=== PATIENT | female | born 1955 | race Caucasian/White ===

== ENCOUNTER 2017-04-16 17:49 | Emergency (ER) | payer OTHER ==
--- NOTE | ~2017-04-16 | CT71 ---
[facility] A Service [facility] RADIOLOGY TEXT RESULTS PATIENT: MONALISA SAMAYOA LOCATION: SED : 55 UNIT #: [id number] AGE: [address]: Cony Fuentes PAC SEX: F ORDER DR: [id number] [place] [id number] E MR#: [id number] #: [id number] NAME: MONALISA SAMAYOA : 1955 SEX: F STUDY DATE/TIME: 04/16/2017 18:29 UNIT: SED ROOM: STUDY DESCRIPTION: CT Head Wo Contrast Attending Physician: Cony Fuentes Pa-C Ordering Physician: Cony Fuentes Pa-C Primary Care Physician: Luly Lopez M.D. MEDICAL IMAGING REPORT This report is preliminary unless electronic signature is present. EXAM CT head without contrast INDICATIONS Headache today after a head injury PROCEDURE Unenhanced CT of the head. This CT exam was performed with one or more of the following radiation dose reduction techniques: automatic exposure control, adjustment of mA and/or kV according to patient size, and iterative reconstruction. COMPARISON 04/11/2016 FINDINGS No acute hemorrhage, abnormal mass effect, extraaxial fluid collection or hydrocephalus. No calvarial fracture. The paranasal sinuses and mastoid air cells are clear. IMPRESSION No acute intracranial findings. Dictated by... Obed Camejo M.D. THIS IS AN ELECTRONICALLY VERIFIED REPORT Obed Camejo M.D. at 04/17/2017 10:38 AM EED/to TD: 04/16/2017 19:11 JOB #: [id number] [facility] A Service [facility] RADIOLOGY TEXT RESULTS PATIENT: MONALISA SAMAYOA LOCATION: SED : 55 UNIT #: [id number] AGE: [address]: Fischbach,Candy S PAC SEX: F ORDER DR: MEDICAL IMAGING REPORT Page 1 of 1
[~2017-04-16 17:49] MED LIST: ALBUTEROL0.83 MG/ML INH; ALBUTEROL17 GM INH; ALLEGRA; AMOXICILLIN500 M1 PO; ASPIRIN81 M2 PO; ASPIRIN81 MG PO; BENADRYL; BENADRYL25 M1; BENADRYL25 M3 PO; BENZONATATE PO; CATAPRES-TTS-20.2 MG PO; ENALAPRIL MALEA20 MG PO; HCTZ; HCTZ PO; HYDROCHLOROTHIA25 MG PO; KCL PO; KLOR-CON PO; LASIX PO; LEVAQUIN PO; LEVOXYL0.137 MG PO; NORVASC PO; NORVASC2.5 MG PO; PHENERGAN DM1 ML PO; PREDNISONE PO; PREDNISONE10 MG/DOSE PO; PROAIR HFA8.5 GM INH; ROBITUSSIN-COU237 ML PO; SINGULAIR PO; SYNTHROID PO; TYLENOL #3 PO; VASOTEC20 MG PO; XANAX0.5 MG PO; ZITHROMAX PO; ZYLOPRIM; ZYRTEC PO
== END 2017-04-16 19:02 | disposition home or self-care (01) ==
LOC: SED 17:49
DX: S00.93XA Contusion of unspecified part of head, initial encounter (principal); I10 Essential (primary) hypertension; J44.9 Chronic obstructive pulmonary disease, unspecified; E03.9 Hypothyroidism, unspecified; Z91.041 Radiographic dye allergy status; Z79.899 Other long term (current) drug therapy; W22.8XXA Striking against or struck by other objects, initial encounter; Y92.9 Unspecified place or not applicable
CPT/HCPCS: 70450; 99284